=== PATIENT | female | born 1990 | race Caucasian/White ===

== ENCOUNTER 2017-03-04 16:13 | Outpatient (CLI) | payer OTHER ==
[2016-09-14 21:35] VITALS: BP 149/63
[2017-03-05 11:33] LABS: CANDIDA SPECIES DNA PROBE NEGATIVE (NEGATIVE); GARDNERELLA VAGINALIS NEGATIVE (NEGATIVE); TRICHOMONAS VAGINALIS POSITIVE (NEGATIVE)
== END 2017-03-04 16:14 ==
LOC: LABRHC 16:13
PROVIDERS: ATTEND Physician Assistant
DX: Z12.4 Encounter for screening for malignant neoplasm of cervix (principal); Z87.898 Personal history of other specified conditions; N89.8 Other specified noninflammatory disorders of vagina; Z01.419 Encounter for gynecological examination (general) (routine) without abnormal findings
CPT/HCPCS: 87480; 87491; 87510; 87591; 88148; G0143

== ENCOUNTER 2019-08-14 11:42 | Emergency (ER) | payer SELFPAY ==
[2016-09-14 21:35] VITALS: BP 149/63
[2019-08-24 08:49] LABS: APPEARANCE,URINE CLEAR (CLEAR); COLOR,URINE YELLOW (YELLOW); OCCULT BLOOD,URINE 1+ (NEGATIVE); PH URINE 6.5 (5.0 - 8.0); URINE HCG NEGATIVE (NEGATIVE); UROBILINOGEN URINE 0.2 Eu (0.2-1.0)
== END 2019-08-14 13:53 ==
LOC: ED 11:42
DX: N76.0 Acute vaginitis (principal)
CPT/HCPCS: 81002; 81025; 87491; 87591; 87661; 99283

== ENCOUNTER 2019-08-28 10:22 | Outpatient (CLI) | payer MEDICAID, OTHER ==
[2016-09-14 21:35] VITALS: BP 149/63
[2019-08-28 12:03] LABS: eGFR (Non-African) > 60
== END 2019-08-28 10:27 ==
LOC: LAB 10:22
PROVIDERS: ATTEND Family Medicine
DX: R63.4 Abnormal weight loss (principal)
CPT/HCPCS: 36415; 80053; 83036; 84439; 84443; 84481

== ENCOUNTER 2019-11-18 20:46 | Emergency (ER) | payer MEDICAID, OTHER ==
--- NOTE | 2019-11-18 21:02 | ED Physician Documentation ---
General Adult - HISTORIAN Historian: patient - HPI Chief Complaint: Upper Back Injury/ Pain Additional Information: Patient slipped and fell this AM from standing height. landed on her left side. Patient has some immediate pain in the left shoulder area, clavicular area and right wrist area. No LOC noted. Pain has gradually bee getting worse over the last 8 hours. Pain worse with lifting her arm above head. Has been taking Tylelnol without mmuch help. Denies chance of 15 months ago. Onset: hours Timing: still present Severity: moderate Modifying Factors: worse with lifting arms above her head - ROS CONST: no problems EYES/ENT: denies: problems with vision - PAST HX Past History: none Other History: none Surgeries/Procedures: none Immunizations: denies: influenza Allergies/Adverse Reactions: Allergies Allergy/AdvReac Type Severity Reaction Status Date / Time No Known Allergies Allergy Verified 09/14/16 19:16 Home Medications: Ambulatory Orders Medication Instructions Recorded Hydroxyzine Pamoate [Vistaril] 09/14/16 Venlafaxine HCl [Effexor] 09/14/16 Cyclobenzaprine HCl 10 mg PO Q8 PRN #30 tablet 11/18/19 - SOCIAL HX Smoking History: greater than 1 pack/day (1 ppd) Alcohol Use: none Drug Use: none - FAMILY HX Family History: Yes - VITAL SIGNS Vital Signs: Vital Signs Temp Pulse Resp BP Pulse Ox 149/63 09/14/16 21:27 - REVIEWED ASSESSMENTS Nursing Assessment Reviewed: Yes Vitals Reviewed: Yes ED Results Lab/Radiology - Radiology Radiology Impressions: T spine x-ray: normal General Adult Physical Exam - PHYSICAL EXAM GENERAL APPEARANCE: mild distress EENT: eye inspection normal, ENT inspection normal NECK: normal inspection, supple, other (no tenderness over palpation of clavicle) RESPIRATORY: no resp distress, chest non-tender, breath sounds normal CVS: reg rate & rhythm, heart sounds normal, equal pulses, no murmur ABDOMEN: soft, no organomegaly, normal bowel sounds, no distension BACK: other (tenderness topalpation over the upper thoracic spine and just lateral to the spine on the L. No bony abnl noted.) SKIN: warm/dry EXTREMITIES: non-tender, normal range of motion, other (shoulder has good range of motion) NEURO: oriented X3, CN's nml as tested, motor nml, sensation nml, mood/affect nml, cognition normal Discharge Clincal Impression: Contusion of back wall of thorax Prescriptions: Cyclobenzaprine HCl 10 mg PO Q8 PRN #30 tablet PRN Reason: muscle spasms Referrals: Bear Leroy MD [Emergency Provider] - 2 Days Additional Instructions: Alternate between a warm and cool compress to the area. Take Aleve (220mg per tab) 2 tabs every 12 hours with food or ibuprofen (200mg per tab) 3-4 tabs every 8 hours with food. Do some gentle stretching exercises to the area. If symptoms do not improve to see your primary care provider for further evaluation or return to the ED. Condition: Stable Disposition: 01 HOME, SELF-CARE Decision to Admit: NO Date of Decison to Admit: 11/18/19 Decision Time: 21:35
[2019-11-18] MEDS: CYCLOBENZAPRINE HCL 10 MG TABLET PO ONE (21:20)
[2019-11-18 21:58] VITALS: BP 112/60
--- NOTE | 2019-11-21 13:23 | Diagnostic Imaging Report ---
[facility] [address] [place] [facility] [id number] Patient Name: TIERA REYES Referring Physician: Bear Leroy Date of : 1990 Gender: F Date of Service: 11/18/2019 Exam Requested: T SPINE 3 VIEWS THORACIC SPINE HISTORY: Upper back pain. FINDINGS: AP, lateral and swimmer's views of the thoracic spine demonstrate vertebral bodies and intervertebral disc spaces to be normal. Posterior elements are intact. No fracture or other abnormality is seen. IMPRESSION: Unremarkable thoracic spine images. NNA
== END 2019-11-18 21:56 | disposition home or self-care (01) ==
LOC: ED 20:46
DX: S20.222A Contusion of left back wall of thorax, initial encounter (principal); W01.0XXA Fall on same level from slipping, tripping and stumbling without subsequent striking against object, initial encounter
CPT/HCPCS: 99284